=== PATIENT | female | born 1965 | race Caucasian/White ===

== ENCOUNTER 2018-07-10 08:48 | Day surgery (SDC) | payer MEDICAID, SELFPAY ==
[2018-05-28 14:33] VITALS: BMI 30.7
[2018-07-10] VITALS (8 sets, daily range): BP systolic 91–126; BP diastolic 56–73; PULSE 71–78; RESP 14–92; TEMP 36.4–36.9; O2SAT 92–98; BMI 31.6
--- NOTE | 2018-07-10 | LES_PTH ---
PATIENT: JESSE MORAN LOC: [facility] [place] U#:[id number] AGE/SX: 52/F ROOM: RE07/10/[address]: Dr. Adán Augustine MD : 1965 BED: DIS: 07/10/2018 SPEC #: [id number] RECD: 07/10/18 11:46 STATUS: PRESTON JOSE #: [id number] SUNNY: 07/10/18 00:[address]: Adán Augustine DEPT: SURGICAL PATHOLOGY RECD BY: Jessa Whitmore ENTERED: 07/10/18 12:12 SP TYPE: Lesion OTHR DR: JOSH King Tissues: Skin of face, NOS Procedures: Frozen Section (charge) Surgery Specimen Level IV HEADER OPERATION: Excision lesion, poss. Skin flap, frozen section, supramedial cheek PRE-OP DIAGNOSIS: Lesion right supramedial cheek TISSUE SUBMITTED: Supramedial lesion right cheek FROZEN SECTION DIAGNOSIS Supramedial lesion, right cheek, biopsy: Intradermal nevus. Negative for malignancy. YANET:west 07/10/18 MICROSCOPIC DIAGNOSIS Skin lesion of right cheek, biopsy: Intradermal nevus. AM:west 07/13/18 MICROSCOPIC DESCRIPTION Slides are reviewed. GROSS DESCRIPTION Received fresh for frozen section diagnosis labeled with the patient's name is a specimen designated supramedial lesion right cheek. The specimen consists of a round piece of oswald-white skin measuring 0.5 x 0.5 x 0.1 cm. The specimen is inked, bisected and submitted for frozen section diagnosis in one cassette. / YANET:west 07/10/18 TC: CPT: 54199, 11072
--- NOTE | 2018-07-10 00:21 | PCM.HP.BLA ---
History and Physical Date of Admission: 07/10/18 HISTORY OF PRESENT ILLNESS 52 year old woman presents for evaluation for TBSE. She has concerns about a lesion on her right supramedial cheek that has increased in size over the last several months and has become more raised in configuration and has developed irregular borders. She denies any ulceration. She denies any bleeding. She denies any trauma. She presents at this time for further evaluation and treatment. PAST MEDICAL HISTORY History of blood clots Raynauds disease PAST SURGICAL HISTORY vein stripping ALLERGIES Sulfa (Sulfonamide Antibiotics) MEDICATIONS omeprazole simvastatin FAMILY HISTORY Unknown - No problems noted. SOCIAL HISTORY Smoking Status: Never smoker alcohol intake: current substance use type: does not use REVIEW OF SYSTEMS General - Denies fever, fatigue, and weight loss. Eyes - Denies cataracts and glaucoma. ENT - Denies nasal congestion and sore throat. Endocrine - Denies excessive thirst and urination. Skin - Has enlarging lesion right supramedial cheek. Denies skin cancer. Musculoskeletal - Denies joint pain, joint stiffness, weakness of muscles and joints, back pain, and arthritis. Neuro - Denies headaches. Cardiovascular - Denies chest pain, fatigue, and shortness of breath with exertion. Psych - Denies anxiety and depression. Respiratory - Denies chronic cough and shortness of breath. Gastrointestinal - Denies nausea, vomiting, diarrhea, and constipation. Hematologic - Denies abnormal bruising and bleeding. Genitourinary - Denies hematuria and urinary frequency. PHYSICAL EXAMINATION General - Alert and Oriented HEENT - PERRL. EOMI. Throat is clear. On the right supramedial cheek is a lesion that measures 6 mm. It is nodular and raised in configuration. Has irregular borders. No ulceration. The lesion is nontender. Neck - Supple and nontender. No cervical adenopathy. No suspicious lesions noted. Lungs - Clear to auscultation. Heart - Regular rate and rhythm. Abdomen - Soft and nondistended. Extremities - FROM. No axillary adenopathy. Radial pulses are palpable. No suspicious lesions noted. Neuro - CN II-XII grossly intact. Psych - Normal mood and affect. ASSESSMENT 6 mm lesion right supramedial cheek. PLAN Recommend excision of this lesion and send it to Pathology for analysis to rule out carcinoma. If carcinoma is present or if a pre-cancerous lesion is present, then further excision will be done with skin flap reconstruction. Discussed the extent of the scarring with the patient personally if the flap becomes necessary for reconstruction. She voiced understanding. Surgery will be on an outpatient basis under local anesthesia and IV sedation. Patient was informed of the risks and complications of the procedure including alternatives to surgery. These were discussed with the patient personally. Patient voices understanding and wishes to proceed. Some of the risks and complications were included in a form from the [employer].
[2018-07-10] MEDS: Mupirocin Ointment 22gm Tube 1 APPLIC (11:56)
[2018-07-10] MEDS: Silver Nitrate (BKC) 1 EACH (11:57)
--- NOTE | 2018-07-10 12:00 | PCM.OPRPT ---
Report of Operation Date of Procedure: 07/10/18 Pre-Operative Diagnosis: 6 mm lesion right supramedial cheek. Post-Operative Diagnosis: 6 mm intradermal nevus right supramedial cheek. Surgery/Procedure Performed:: Intradermal excision 6 mm intradermal nevus right supramedial cheek. Description of Surgical Findings:: 52 year old woman presents for evaluation for TBSE. She has concerns about a lesion on her right supramedial cheek that has increased in size over the last several months and has become more raised in configuration and has developed irregular borders. She denies any ulceration. She denies any bleeding. She denies any trauma. Patient was informed of the risks and complications of the procedure including alternatives to surgery. These were discussed with the patient personally. Patient voices understanding and wishes to proceed. Some of the risks and complications were included in a form from the [employer]. Frozen section right supramedial cheek - intradermal nevus and no carcinoma seen. fish header: None Type of Anesthesia:: Local MAC - xylocaine with epinephrine and IV sedation. Specimen's removed: Lesion right supramedial cheek to Pathology as a frozen section. Drains: None. Estimated Blood Loss (mL): 1 ml. Description of Procedure: Patient was taken to OR in supine position and was given IV sedation. The right face was prepped and draped in the usual fashion. SCD's were placed for DVT prophylaxis. Perioperative antibiotics were given intravenously. The lesion right supramedial cheek was infiltrated with xylocaine and epinephrine. After waiting 5 minutes for the anesthetic to take effect, the lesion was excised in an intradermal fashion. The lesion was sent to Pathology as a frozen section. Frozen section showed an intradermal nevus and no carcinoma seen. Therefore no more excision was necessary today. Hemostasis was obtained with silver nitrate chemical cauterization. Antibiotic ointment was applied. Patient tolerated the procedure well and was sent to PACU in satisfactory condition. Patient will be sent home on antibiotics and pain medication. Patient will followup in a week for a wound check and for discussion of the pathology report. Grafts/Implants Used: None. - Complications None. - Admit VTE Documentation VTE Present on Admission: No VTE Mechan Device Prophylaxis: SCD's VTE Pharm Prophylaxis ordered?: No Code Visit Surgery Charges CPT - 36643 ICD-10 - D49.2, D23.39
--- NOTE | 2018-07-10 12:05 | OP.PCM_ITS ---
Report of Operation Date of Procedure: 07/10/18 Pre-Operative Diagnosis: 6 mm lesion right supramedial cheek. Post-Operative Diagnosis: 6 mm intradermal nevus right supramedial cheek. Surgery/Procedure Performed:: Intradermal excision 6 mm intradermal nevus right supramedial cheek. Description of Surgical Findings:: 52 year old woman presents for evaluation for TBSE. She has concerns about a lesion on her right supramedial cheek that has increased in size over the last several months and has become more raised in configuration and has developed irregular borders. She denies any ulceration. She denies any bleeding. She denies any trauma. Patient was informed of the risks and complications of the procedure including alternatives to surgery. These were discussed with the patient personally. Patient voices understanding and wishes to proceed. Some of the risks and complications were included in a form from the [employer]. Frozen section right supramedial cheek - intradermal nevus and no carcinoma se en. technical planner: None Type of Anesthesia:: Local MAC - xylocaine with epinephrine and IV sedation. Specimen's removed: Lesion right supramedial cheek to Pathology as a frozen section. Drains: None. Estimated Blood Loss (mL): 1 ml. Description of Procedure: Patient was taken to OR in supine position and was given IV sedation. The right face was prepped and draped in the usual fashion. SCD's were placed for DVT prophylaxis. Perioperative antibiotics were given intravenously. The lesion right supramedial cheek was infiltrated with xylocaine and epinephrine. After waiting 5 minutes for the anesthetic to take effect, the lesion was excised in an intradermal fashion. The lesion was sent to Pathology as a frozen section. Frozen section showed an intradermal nevus and no carcinoma seen. Therefore no more excision was necessary today. Hemostasis was obtained with silver nitrate chemical cauterization. Antibiotic ointment was applied. Patient tolerated the procedure well and was sent to PACU in satisfactory condition. Patient will be sent home on antibiotics and pain medication. Patient will followup in a week for a wound check and for discussion of the pathology report. Grafts/Implants Used: None. - Complications None. - Admit VTE Documentation VTE Present on Admission: No VTE Mechan Device Prophylaxis: SCD's VTE Pharm Prophylaxis ordered?: No Code Visit Surgery Charges CPT - 66559 ICD-10 - D49.2, D23.39
--- NOTE | 2018-07-10 12:10 | PCM.DC ---
You will use the following diet at home:: No restrictions Discharge Activity: May Shower - tomorrow, - - keep head elevated. May shower in (days): 1 May resume sexual activity in: No Restrictions Ice area for (Minutes): 5 - as needed for facial swelling. Weight Bearing Status: Weight bearing as tolerated Keep extremity elevated above heart level: - - elevate head. Call your doctor if your incision/area has: Continuous Slow Oozing, Sudden Increased Bleeding, Increased Pain/ Swelling, Increased Redness, Foul Smelling Discharge, Swelling at the incision site Call your doctor if you observe: Fever of 101 or Higher, Coldness, Increased Pain, Shortness of breath, Chest pain, Calf discomfort, Uncontrolled pain Suture Line Care: - - apply antibiotic ointment to wound daily. Cleanse incision/area with: - - mat get wound wet in the shower tomorrow. Allergies/Adverse Reactions: Allergies Sulfa (Sulfonamide Antibiotics) Allergy (Verified 07/07/18 10:53) ALLERGY Medications to take at Discharge omeprazole 20 mg capsule,delayed release 20 mg PO DAILY 04/03/18 simvastatin 20 mg tablet 20 mg PO QHS 04/03/18 Ferrous Sulfate [Slow Release Iron] 140 mg PO DAILY 07/07/18 Clindamycin HCl [Cleocin] 300 mg PO TID #9 cap 07/10/18 Oxycodone HCl/Acetaminophen [Percocet 5/325] 1 tab PO BID PRN PRN 3 Days #6 tab 07/10/18 The following prescriptions were given: Oxycodone HCl/Acetaminophen [Percocet 5/325] 1 tab PO BID PRN PRN 3 Days #6 tab PRN Reason: Pain Clindamycin HCl [Cleocin] 300 mg PO TID #9 cap Primary Care Physician: Dejuan Owen PA [Primary Care Provider] - Test Results: Test results from this visit will be discussed in further detail at your follow-up appointment, if applicable. Please Follow Up With: Adán Augustine MD When: one week. call [phone] for appt. Proposed Discharge Date: 07/10/18
--- NOTE | 2018-07-10 12:16 | DCINST_ITS ---
You will use the following diet at home:: No restrictions Discharge Activity: May Shower - tomorrow, - - keep head elevated. May shower in (days): 1 May resume sexual activity in: No Restrictions Ice area for (Minutes): 5 - as needed for facial swelling. Weight Bearing Status: Weight bearing as tolerated Keep extremity elevated above heart level: - - elevate head. Call your doctor if your incision/area has: Continuous Slow Oozing, Sudden Increased Bleeding, Increased Pain/ Swelling, Increased Redness, Foul Smelling Discharge, Swelling at the incision site Call your doctor if you observe: Fever of 101 or Higher, Coldness, Increased Pain, Shortness of breath, Chest pain, Calf discomfort, Uncontrolled pain Suture Line Care: - - apply antibiotic ointment to wound daily. Cleanse incision/area with: - - mat get wound wet in the shower tomorrow. Allergies/Adverse Reactions: Allergies Sulfa (Sulfonamide Antibiotics) Allergy (Verified 07/07/18 10:53) ALLERGY Medications to take at Discharge omeprazole 20 mg capsule,delayed release 20 mg PO DAILY 04/03/18 simvastatin 20 mg tablet 20 mg PO QHS 04/03/18 Ferrous Sulfate [Slow Release Iron] 140 mg PO DAILY 07/07/18 Clindamycin HCl [Cleocin] 300 mg PO TID #9 cap 07/10/18 Oxycodone HCl/Acetaminophen [Percocet 5/325] 1 tab PO BID PRN PRN 3 Days #6 tab 07/10/18 The following prescriptions were given: Oxycodone HCl/Acetaminophen [Percocet 5/325] 1 tab PO BID PRN PRN 3 Days #6 tab PRN Reason: Pain Clindamycin HCl [Cleocin] 300 mg PO TID #9 cap Primary Care Physician: Dejuan Owen PA [Primary Care Provider] - Test Results: Test results from this visit will be discussed in further detail at your follow- up appointment, if applicable. Please Follow Up With: Adán Augustine MD When: one week. call [phone] for appt. Proposed Discharge Date: 07/10/18
== END 2018-07-10 13:10 | disposition home or self-care (01) ==
LOC: SDC 08:49 → AC 08:49
PROVIDERS: Family Provider Physician Assistant; PCP Physician Assistant; Referring Provider Surgery; Visit Provider Surgery
PROC: (CPT 11311; principal; 2018-07-10 10:15)
DX: D22.39 Melanocytic nevi of other parts of face (principal); D64.9 Anemia, unspecified; E78.00 Pure hypercholesterolemia, unspecified; K21.9 Gastro-esophageal reflux disease without esophagitis; Z79.899 Other long term (current) drug therapy
CPT/HCPCS: 11311; 88305; 88331; J7120; J2405

== ENCOUNTER → 2020-06-14 08:26 | Outpatient (CLI) | payer OTHER, SELFPAY ==
[2018-10-01 15:03] VITALS: BMI 31.6
--- NOTE | 2020-06-14 08:30 | BI_ITS ---
MAMMOGRAPHY - BILATERAL SCREENING REASON FOR EXAM: Female, 54 years old. Routine annual screening examination. PERTINENT HISTORY: Aunt with breast cancer. TECHNIQUE: Digital bilateral breast anton (3D mammographic acquisition) in the CC and MLO projections. 2-D mediolateral oblique (MLO) and craniocaudad (CC) views of both breasts were obtained. CAD: Full Field Digital Mammography with Computer Added Detection was performed. COMPARISON: Comparison is made with prior outside examination dated 05/01/2017. FINDINGS: Breast Composition: The breasts are heterogeneously dense, which may obscure small masses. There are no dominant masses or suspicious calcifications. Stable small benign-appearing bilateral axillary lymph nodes. No other significant abnormalities are identified. There has been no significant change since the prior study. BI/SCRN MAMM (CAD)W/ANTON BILAT IMPRESSION: Stable bilateral screening mammogram. Yearly follow-up mammogram recommended. (A) ASSESSMENT CATEGORY: BIRADS Category 2: Benign. A letter regarding these results will be sent to the patient by the facility within 30 days. Approximately 10% of breast cancers are not detected by mammography. A normal mammogram should not delay biopsy of a clinically suspicious abnormality. [id number] Electronically Signed: Marques Cohen MD at 9:23 EDT , Service support ,
== END ==
PROVIDERS: PCP Physician Assistant; Referring Provider Physician Assistant; Visit Provider Physician Assistant
DX: Z12.31 Encounter for screening mammogram for malignant neoplasm of breast (principal)
CPT/HCPCS: 77063; 77067

== ENCOUNTER → 2020-07-17 | Outpatient (CLI) | payer OTHER, SELFPAY ==
[2020-07-17 10:16] VITALS: BMI 31.0
[2020-07-19 12:20] LABS: HPV APTIMA, High Risk Negative (Negative)
== END | disposition home or self-care (01) ==
LOC: LABSPEC 13:57
PROVIDERS: PCP Physician Assistant; Referring Provider Nurse Practitioner Women's Health; Visit Provider Nurse Practitioner Women's Health
DX: Z12.4 Encounter for screening for malignant neoplasm of cervix (principal)
CPT/HCPCS: 87624; 88175; G0145

== ENCOUNTER → 2021-07-23 | Outpatient (CLI) | payer OTHER, SELFPAY ==
--- NOTE | 2021-07-23 10:14 | BI_ITS ---
MAMMOGRAPHY - BILATERAL SCREENING REASON FOR EXAM: Female, 55 years old. Routine annual screening examination. PERTINENT HISTORY: Aunt with breast cancer. TECHNIQUE: Digital bilateral breast anton (3D mammographic acquisition) in the CC and MLO projections. 2-D mediolateral oblique (MLO) and craniocaudad (CC) views of both breasts were obtained. CAD: Full Field Digital Mammography with Computer Added Detection was performed. COMPARISON: Comparison is made with prior study of 06/14/2020. FINDINGS: Breast Composition: The breasts are heterogeneously dense, which may obscure small masses. There are no dominant masses or suspicious calcifications. Stable small benign-appearing bilateral axillary lymph nodes. No other significant abnormalities are identified. There has been no significant change since the prior study. BI/SCRN MAMM (CAD)W/ANTON BILAT IMPRESSION: Stable bilateral screening mammogram. Yearly follow-up mammogram recommended. (A) ASSESSMENT CATEGORY: BIRADS Category 2: Benign. A letter regarding these results will be sent to the patient by the facility within 30 days. Approximately 10% of breast cancers are not detected by mammography. A normal mammogram should not delay biopsy of a clinically suspicious abnormality. [id number] Electronically Signed: Marques Cohen MD at 12:34 EDT ,
== END | disposition home or self-care (01) ==
LOC: OPBI 10:13
PROVIDERS: PCP Physician Assistant; Referring Provider Nurse Practitioner Women's Health; Visit Provider Nurse Practitioner Women's Health
DX: Z12.31 Encounter for screening mammogram for malignant neoplasm of breast (principal)
CPT/HCPCS: 77063; 77067

== ENCOUNTER → 2022-04-03 | Outpatient (CLI) | payer OTHER, SELFPAY | END | disposition home or self-care (01) | LOC: LABSPEC 11:22 | PROVIDERS: PCP Physician Assistant; Referring Provider Nurse Practitioner Women's Health; Visit Provider Nurse Practitioner Women's Health | DX: N94.9 Unspecified condition associated with female genital organs and menstrual cycle (principal) | CPT/HCPCS: 87070; 87205 ==

== ENCOUNTER → 2022-07-24 | Outpatient (CLI) | payer OTHER, SELFPAY ==
--- NOTE | 2022-07-24 10:18 | BI_ITS ---
MAMMOGRAPHY - BILATERAL SCREENING REASON FOR EXAM: Female, 56 years old. Routine annual screening examination. PERTINENT HISTORY: Aunts with breast cancer. TECHNIQUE: Digital bilateral breast anton (3D mammographic acquisition) in the CC and MLO projections. 2-D mediolateral oblique (MLO) and craniocaudad (CC) views of both breasts were obtained. CAD: Full Field Digital Mammography with Computer Added Detection was performed. COMPARISON: Comparison is made with prior study dated July 23, 2021 and June 14, 2020. FINDINGS: Breast Composition: The breasts are heterogeneously dense, which may obscure small masses. There are no dominant masses or suspicious calcifications. No other significant abnormalities are identified. There has been no significant change since the prior study. BI/SCRN MAMM (CAD)W/ANTON BILAT IMPRESSION: Stable bilateral screening mammogram. Yearly follow-up mammogram recommended. (A) ASSESSMENT CATEGORY: BIRADS Category 1: Negative. A letter regarding these results will be sent to the patient by the facility within 30 days. Approximately 10% of breast cancers are not detected by mammography. A normal mammogram should not delay biopsy of a clinically suspicious abnormality. [id number] Electronically Signed: Marques Cohen MD at 10:58 EDT ,
== END | disposition home or self-care (01) ==
LOC: OPBI 10:17
PROVIDERS: PCP Physician Assistant; Referring Provider Physician Assistant; Visit Provider Physician Assistant
DX: Z12.31 Encounter for screening mammogram for malignant neoplasm of breast (principal)
CPT/HCPCS: 77063; 77067

== ENCOUNTER → 2023-08-11 | Outpatient (CLI) | payer OTHER, SELFPAY ==
--- NOTE | 2023-08-11 10:12 | BI_ITS ---
MAMMOGRAPHY - BILATERAL SCREENING 3-D TOMOSYNTHESIS REASON FOR EXAM: Female, 57 years old. SCREENING PERTINENT HISTORY: No significant family history. TECHNIQUE: 2-D mammograms and 3-D Tomosynthesis of the breast (s) were performed. CAD was performed. COMPARISON: 07/24/2022 FINDINGS: The breast composition is heterogeneously dense that can obscure small breast masses. Scattered benign calcifications are seen. No dense spiculated masses or suspicious microcalcifications are identified. No architectural distortion is identified. There is no skin thickening or retraction. There has been no significant change since the prior study. BI/SCRN MAMM (CAD)W/ANTON BILAT IMPRESSION: No mammographic signs of malignancy. Routine yearly mammograms recommended. ASSESSMENT CATEGORY: BIRADS Category 1: Negative. A letter regarding these results will be sent to the patient by the facility within 30 days. FOLLOW UP RECOMMENDATION: Yearly follow up mammogram recommended. (A) Approximately 10% of breast cancers are not detected by mammography. A normal mammogram should not delay biopsy of a clinically suspicious abnormality. Electronically Signed: Nelson Nicole MD at 14:31 EDT ,
== END | disposition home or self-care (01) ==
LOC: OPBI 10:10
PROVIDERS: PCP Physician Assistant; Referring Provider Physician Assistant; Visit Provider Family Medicine
DX: Z12.31 Encounter for screening mammogram for malignant neoplasm of breast (principal)
CPT/HCPCS: 77063; 77067

== ENCOUNTER → 2024-08-13 | Outpatient (CLI) | payer BC, SELFPAY ==
--- NOTE | 2024-08-13 07:43 | BI_ITS ---
EXAM: SCRN MAMM (CAD)W/ANTON BILAT 08/13/2024 CLINICAL HISTORY: F, Age 58 y/o , SCREENING TECHNIQUE: Bilateral screening digital breast tomosynthesis with 2D and 3D images. Computer aided detection. COMPARISON: Prior exam(s) dated 08/11/2023, 07/24/2022, 07/23/2021. FINDINGS: TISSUE DENSITY: The breast tissue is heterogenously dense, which may obscure small masses. The mammogram demonstrates that the patient has dense breasts. Supplemental screening with whole breast ultrasound or MRI may be considered for further evaluation. Bilateral Breast Mammographic Findings: No significant masses, calcifications or other abnormalities are identified. BI/SCRN MAMM (CAD)W/ANTON BILAT IMPRESSION: Right Breast: BIRADS 1 NEGATIVE. Left Breast: BIRADS 1 NEGATIVE. OVERALL FINAL ASSESSMENT: BIRADS 1 NEGATIVE. RECOMMENDATION: Routine annual follow-up in 1 Year A letter with findings and recommendations will be mailed to the patient. Reading Location: [id number]
== END | disposition home or self-care (01) ==
LOC: OPBI 07:41
PROVIDERS: PCP Physician Assistant; Referring Provider Obstetrics & Gynecology; Visit Provider Obstetrics & Gynecology
DX: Z12.31 Encounter for screening mammogram for malignant neoplasm of breast (principal)
CPT/HCPCS: 77063; 77067